=== PATIENT | male | born 1940 | race Caucasian/White ===

== ENCOUNTER 2019-12-20 06:03 | Inpatient (IN) | payer OTHER ==
[~2019-12-20] VITALS: Ht 198.1 cm; Wt 136.6 kg
[~2019-12-20 06:03] MED LIST: ASPI-543 PO; CANA100T PO; LOSA-69 PO; MECL25TA18 PO
[2019-12-20] MEDS ORDERED: PREGABALIN CAPSULE 75 MG CAP PO ONE ×2 (06:30→07:15)
[2019-12-20] MEDS ORDERED: CELECOXIB 100 MG CAP PO ONE (06:30)
[2019-12-20] MEDS ORDERED: ACETAMINOPHEN IV 1000 MG/100ML (10MG/ML) IV ONE (06:30)
[2019-12-20] MEDS ORDERED: ACETAMINOPHEN IV 100 ML IV ONE (06:41)
[2019-12-20] MEDS ORDERED: TRANEXAMIC ACID 20 ML ONE (07:01)
[2019-12-20] MEDS ORDERED: VANCOMYCIN HCL 1000 MG VL ONE (07:03)
[2019-12-20] MEDS ORDERED: KETOROLAC TROMETH 30 MG/ML 1ML VIAL ONE ×2 (07:03→09:23)
[2019-12-20] MEDS ORDERED: MORPHINE SULF(PF) 0.5MG/ML 10ML VIAL ONE (07:06)
[2019-12-20] MEDS ORDERED: ceFAZolin 1GM/50ML 100 ML IV ONE ×3 (07:07→23:03)
[2019-12-20] MEDS ORDERED: BUPIVACAINE 0.25% INJ 50ML VIAL ONE (07:09)
[2019-12-20 07:32] LABS: Hemoglobin 14.1 g/dL (13.5-17.5); Mean Corpuscular Volume 103.5 fL (80.0-100.0)
[2019-12-20 07:34] LABS: Hematocrit 37.6 % (41.0-53.0); Mean Corpuscular Hemoglobin 38.7 pg (28.0-32.0); Mean Corpuscular Hgb Conc. 37.4 g/dL (32.0-36.0); Platelet Count (auto) 142 10^3/uL (140-450); Red Blood Cells 3.63 10^6/uL (4.5-5.90); Red Cell Distribution Width 14.2 % (11.8-14.3); White Blood Cell 12.1 10^3/uL (4.4-10.8)
[2019-12-20] MEDS ORDERED: LIDOCAINE 1% HCL (LOCAL ANESTH.) INJ 20ML MDV ONE (07:40)
[2019-12-20] MEDS ORDERED: SUCCINYLCHOLINE CHLORIDE 20 MG/ML 10ML VIAL IV ONE (07:40)
[2019-12-20 07:52] LABS: Band Neutrophils % (manual) 0; Basophils % (manual) 0 (0.0-2.0); Blast Cells 0; Metamyelocytes % 0; Myelocytes % 0; Promyelocytes % 0; Reactive Lymphocytes 0
[2019-12-20] MEDS ORDERED: MIDAZOLAM HCL 1MG/1ML-2 ML VIAL ONE (07:55)
[2019-12-20] MEDS ORDERED: METOCLOPRAMIDE HCL 5MG/ml INJ 2ml VIAL ONE (07:56)
[2019-12-20] MEDS ORDERED: ETOMIDATE (2MG/ML) 20ML VIAL IV ONE (07:57)
[2019-12-20] MEDS ORDERED: ROCURONIUM 10MG/ML 10ML VIAL IV ONE (07:58)
[2019-12-20] MEDS ORDERED: fentaNYL CITRATE 100 MCG/2 ML VL ONE (08:13)
[2019-12-20] MEDS ORDERED: ONDANSETRON HCL 4 MG/2 ML VIAL IV PRN ×2 (08:15→10:00)
[2019-12-20] MEDS ORDERED: ACCU-CHEK COMFORT CURVE STRIP VI ONE (08:15)
[2019-12-20] MEDS ORDERED: NALOXONE HCL 0.4 MG/ML VIAL IV PRN (08:15)
[2019-12-20] MEDS ORDERED: HYDROmorphone HCL 2 MG/ML VL IV PRN ×3 (08:15→10:00)
[2019-12-20 08:41] LABS: Eosinophils % (manual) 5 (0-7); Lymphocytes % (manual) 72 (10.0-50.0); Monocytes % (manual) 4 (0-12)
[2019-12-20] MEDS ORDERED: SODIUM CHLORIDE LOCK 10 ML ONE (08:42)
[2019-12-20] MEDS ORDERED: ePHEDrine SULFATE 50 MG/ML AMP ONE (08:42)
[2019-12-20] MEDS ORDERED: GLYCOPYRROLATE 0.2 MG/ML 1ML VIAL ONE (09:49)
[2019-12-20] MEDS ORDERED: NEOSTIGMINE 1 MG/ML INJ (10mg/10ML VIAL) ONE (09:49)
[2019-12-20] MEDS: DOCUSATE SOD 100 MG CAP PO SCH ×2 (10:00→21:35)
[2019-12-20] MEDS: ENOXAPARIN SOD 40 MG/0.4 ML SYRINGE SC SCH (10:00)
[2019-12-20] MEDS ORDERED: OXYCODONE W/ ACETAMINOPHEN 5/325MG TABLET PO PRN (10:00)
[2019-12-20] MEDS ORDERED: ACETAMINOPHEN 325 MG TAB PO PRN (10:00)
[2019-12-20] MEDS ORDERED: CANAGLIFLOZIN 100 MG PO SCH (10:00)
[2019-12-20] MEDS ORDERED: traMADol HCL 50 MG TAB PO PRN (10:00)
[2019-12-20] MEDS ORDERED: MORPHINE SULF INJ 2 MG/ML SYRINGE 1ML IV PRN (10:00)
[2019-12-20] MEDS ORDERED: NITROGLYCERIN 0.4 MG SL TAB SL PRN (10:00)
[2019-12-20] MEDS: LOSARTAN POTASSIUM 50 MG TAB PO SCH (10:00)
[2019-12-20] MEDS ORDERED: DEXTROSE (50%) 50ML SYRG IV PRN (10:00)
[2019-12-20] MEDS: LACTATED RINGER'S 1,000 ML IV SCH ×2 (10:00→20:00)
[2019-12-20] MEDS ORDERED: HYDROmorphone HCL 2 MG/ML VL IV ONE (10:45)
[2019-12-20] MEDS ORDERED: ONDANSETRON HCL 4 MG/2 ML VIAL IV ONE (10:45)
[2019-12-20] MEDS ORDERED: ACCU-CHEK COMFORT CURVE STRIP VI SCH (11:30)
[2019-12-20] MEDS: InsuLIN REG 1unit/0.01ml Soln (100units/ml) SC SCH ×3 (11:30→21:37)
[2019-12-20] MEDS: ACCU-CHEK COMFORT CURVE STRIP VI SCH ×3 (11:30→21:37)
[2019-12-20] MEDS: ceFAZolin 1GM 2 GM in D5W 5% 100 ML IV SCH ×2 (14:00→22:00)
[2019-12-20] MEDS: SODIUM CHLOR 0.9% PF (SALINE LOCK) 10ML VIAL/SYR IV SCH ×2 (14:00→21:35)
[2019-12-20] MEDS: MECLIZINE HCL 25 MG TAB PO SCH ×2 (14:00→21:35)
[2019-12-20 17:00] VITALS: BP 124/69
--- NOTE | 2019-12-20 19:20 | NUR ---
OPENING SHIFT NOTE Assumed care of patient, patient is alert and oriented currently on RA with no S/S of distress of SOB noted at this time. Patient denies pain. Dressing to the right knee is clean dry and intact. Currently running LR @100mls/hr. Patient is ambulatory with assist. Urinal bedside. POC discussed with patient in detail patient verbalized understanding. Patient is encouraged to call for assistance as needed. Bed in lowest position, locked, side rails up x2, call light within reach. Will continue to monitor PRN.
[2019-12-20 22:00] VITALS: BP 119/61
[2019-12-21 05:44] LABS: Hematocrit 38.2 % (41.0-53.0); Hemoglobin 12.8 g/dL (13.5-17.5)
[2019-12-21 05:45] VITALS: BP 128/56
[2019-12-21] MEDS: MECLIZINE HCL 25 MG TAB PO SCH ×3 (06:00→21:21)
[2019-12-21] MEDS: LACTATED RINGER'S 1,000 ML IV SCH ×2 (06:00→16:00)
[2019-12-21] MEDS: ceFAZolin 1GM 2 GM in D5W 5% 100 ML IV SCH (06:00)
--- NOTE | 2019-12-21 06:00 | NUR ---
IV FLUIDS Patient is tolerating clear liquid, per MD order to discontinue once patient tolerates clear liquids, LR @100mls/hr has been stopped. IV was flushed and is saline locked.
[2019-12-21 06:05] LABS: Albumin 3.3 g/dL (3.4-5.0); Calcium 8.3 mg/dL (8.5-10.1); Potassium 4.1 mmol/L (3.5-5.1)
[2019-12-21] MEDS: SODIUM CHLOR 0.9% PF (SALINE LOCK) 10ML VIAL/SYR IV SCH ×3 (06:05→21:20)
[2019-12-21 06:09] LABS: BUN/Creatinine Ratio 13.6; Bilirubin, Total 1.2 mg/dL (0.2-1.0)
[2019-12-21] MEDS: ACCU-CHEK COMFORT CURVE STRIP VI SCH ×4 (06:28→21:21)
[2019-12-21] MEDS: InsuLIN REG 1unit/0.01ml Soln (100units/ml) SC SCH ×5 (06:29→21:21)
--- NOTE | 2019-12-21 07:29 | NUR ---
CARE ENDORSED TO DAY SHIFT RN
[2019-12-21 09:00] VITALS: BP_SYST 102; BP_SYST 124; BP_DIAS 42; BP_DIAS 53
[2019-12-21] MEDS: LOSARTAN POTASSIUM 50 MG TAB PO SCH (10:28)
[2019-12-21] MEDS: ENOXAPARIN SOD 40 MG/0.4 ML SYRINGE SC SCH (10:29)
[2019-12-21] MEDS: DOCUSATE SOD 100 MG CAP PO SCH ×2 (10:29→21:21)
--- NOTE | 2019-12-21 11:32 | NUR ---
pt refused insulin, per pt his will bring his invokana for his blood sugar.
[2019-12-21] MEDS ORDERED: SODIUM CHLORIDE 0.9% 1,000 ML IV ONE (11:45)
--- NOTE | 2019-12-21 14:56 | NUR ---
D/C planning Per social service consult for home health safety evaluation. F[facility]ed clinical information to [facility]. Per Adrianne [facility]clain home health patient has been accepted and service to start within 24-48hrs upon d.c day.
--- NOTE | 2019-12-21 15:11 | NUR ---
assessment Patient is a 79 year old male who is alert and oriented. Patients cognitive abilities are intact. Prior to admission patient lived home with family and functioned independently. Patient informed me he is able to care for his own ADLs. Per patient he will return home to his prior living arrangements post discharge and family will transport him home. Patient has been admitted for knee replacement. Patients PCP is Dr Luna. Patient has a cane, fww, and crutches for home use. Patient has been admitted for knee replacement. Patient will need home health for PT on discharge. I informed patient he has a right to speak to a social worker psychiatric regarding all care. I informed patient he has a right to participate in any and all discharge planning. Patient has a POA and advanced directive. Patient verbalized understanding and agreed to discharge plan. Addendum: 12/21/19 at 1519 by Liliane BARRERA Amended: Links added.
[2019-12-21] MEDS: OXYCODONE W/ ACETAMINOPHEN 5/325MG TABLET PO PRN ×2 (16:36→21:29)
[2019-12-21 17:00] VITALS: BP 139/58
--- NOTE | 2019-12-21 19:20 | NUR ---
OPENING SHIFT NOTE Assumed care of patient, patient is alert and oriented currently on RA with no S/S of distress of SOB noted at this time. Patient denies pain. Dressing to the right knee is clean dry and intact. Patient is ambulatory with assist. Urinal bedside, SCD machine applied to both legs, IS bedside. POC discussed with patient in detail patient verbalized understanding. Patient is encouraged to call for assistance as needed. Bed in lowest position, locked, side rails up x2, call light within reach. Will continue to monitor PRN.
[2019-12-21 21:50] VITALS: BP 122/49
[2019-12-22] MEDS: LACTATED RINGER'S 1,000 ML IV SCH (02:00)
[2019-12-22] MEDS: OXYCODONE W/ ACETAMINOPHEN 5/325MG TABLET PO PRN (04:11)
--- NOTE | 2019-12-22 04:45 | NUR ---
IV removal IV DC'd with clean sterile technique, catheter fully intact. Pressure dressing applied to site. Patient tolerated well.
--- NOTE | 2019-12-22 05:00 | NUR ---
IV insertion IV access obtained, via clean sterile technique by inserting 20 gauge catheter to the right forearm after 1 attempt. IV secured properly. No trauma to site. Patient tolerated well.
[2019-12-22 05:26] VITALS: BP 136/89
[2019-12-22] MEDS: SODIUM CHLOR 0.9% PF (SALINE LOCK) 10ML VIAL/SYR IV SCH (05:55)
[2019-12-22] MEDS: MECLIZINE HCL 25 MG TAB PO SCH (06:43)
[2019-12-22] MEDS: ACCU-CHEK COMFORT CURVE STRIP VI SCH (06:43)
[2019-12-22] MEDS: InsuLIN REG 1unit/0.01ml Soln (100units/ml) SC SCH (06:43)
--- NOTE | 2019-12-22 07:30 | NUR ---
PATIENT REMOVED TELEBOX AND REFUSED TO BE PUT BACK ON DUE TO PENDING DISCHARGE THIS MORNING. PATIENT WILL BE CONTINUED TO BE MONITORED.
--- NOTE | 2019-12-22 07:30 | NUR ---
Opening Shift Note Assumed care of patient, awake and alert. No S/S of distress/SOB or pain. Instructed on POC and to call for assist PRN, will continue to monitor for changes Q1hr and PRN. Bed is locked and in lowest position. Call light within reach.
--- NOTE | 2019-12-22 07:34 | NUR ---
CARE ENDORSED TO DAY SHIFT RN
[2019-12-22 07:47] LABS: Hematocrit 34.1 % (41.0-53.0); Hemoglobin 12.2 g/dL (13.5-17.5)
[2019-12-22 08:05] LABS: BUN/Creatinine Ratio 16.9; Calcium 8.1 mg/dL (8.5-10.1); Potassium 4.1 mmol/L (3.5-5.1)
[2019-12-22 09:00] VITALS: BP 136/56
--- NOTE | 2019-12-22 09:28 | NUR ---
D/C Planning Regarding social service consult home health for physical therapy. Faxed updated order to [facility] and [facility]. Per Adrianne with [facility] updated order has been received and they will see patient within 24-48hrs upon d/c day.
[2019-12-22] MEDS: DOCUSATE SOD 100 MG CAP PO SCH (10:00)
[2019-12-22] MEDS: ENOXAPARIN SOD 40 MG/0.4 ML SYRINGE SC SCH (10:00)
[2019-12-22] MEDS: LOSARTAN POTASSIUM 50 MG TAB PO SCH (10:00)
--- NOTE | 2019-12-22 10:00 | NUR ---
PATIENT 1000 AM MEDICATIONS NOT ADMINISTERED DUE TO PATIENT BEING DISCHARGED. PATIENT DECLINED MEDICATIONS AND WILL RESUME HOME MEDICATIONS WHEN HOME. WILL CONTINUE TO MONITOR PATIENT.
[2019-12-22 10:25] VITALS: BP 137/64
--- NOTE | 2019-12-22 10:50 | NUR ---
DISCHARGED PATIENT GIVEN DISCHARGE PAPERWORK, ALL QUESTIONS AND CONCERNS ANSWERED. PATIENT GIVEN PRESCRIPTIONS. PATIENT TELEMONITOR REMOVED AND SENT TO ICU HEART LAB. PATIENT CMP MACHINE AT BEDSIDE AND WILL BE TRANSPORTED WITH PATIENT HOME. PATIENT AWAITING HAT BLOCK BENCH HAND FROM . IV removal IV DC'd with clean sterile technique, catheter fully intact. Pressure dressing applied to site. Patient tolerated well.
== END 2019-12-22 12:18 | disposition home health service (06) | DRG 470 ==
LOC: OVERFLOW 06:03 → EDSTATUS 07:00 → TELE-CENTR 16:48
PROVIDERS: ADMIT Orthopaedic Surgery Adult Reconstructive Orthopaedic Surgery; ATTEND Hospitalist
PROC: 8E0YXBZ Computer Assisted Procedure of Lower Extremity (ICD-10-PCS; 2019-12-20)
PROC: 0SRC069 Replacement of Right Knee Joint with Oxidized Zirconium on Polyethylene Synthetic Substitute, Cemented, Open Approach (ICD-10-PCS; principal; 2019-12-20 07:50)
DX: M17.11 Unilateral primary osteoarthritis, right knee (principal); D62 Acute posthemorrhagic anemia; I10 Essential (primary) hypertension; E11.9 Type 2 diabetes mellitus without complications; Z96.651 Presence of right artificial knee joint; Z20.828 Contact with and (suspected) exposure to other viral communicable diseases
CPT/HCPCS: 36415; 73562; 80048; 80053; 82962; 85007; 85014; 85018; 85027; 86850; 86900; 86901; 97110; 97116; 97163; 97530; C1713; G0378; J0131; J0330; J0690; J1815; J1885; J2001; J2250; J2405; J3490; J7060

== ENCOUNTER 2023-03-26 20:28 | Emergency (ER) | payer OTHER ==
[~2023-03-26] VITALS: Ht 198.1 cm; Wt 122.0 kg
[~2023-03-26 20:28] MED LIST changes: -ASPI-543 PO; -LOSA-69 PO; +LOSA50TA46 PO; +MECL1TAB32 PO; -MECL25TA18 PO
[2023-03-26 21:10] VITALS: PULSE 91; RESP 17; O2SAT 96
[2023-03-26 21:30] LABS: Chloride 109 mmol/L (98-107); Potassium 4.5 mmol/L (3.5-5.1); Sodium 138 mmol/L (136-145)
[2023-03-26 21:31] LABS: Anion Gap 11 (5-15); Calcium 8.9 mg/dL (8.5-10.1); Carbon Dioxide 18 mmol/L (20-30)
[2023-03-26 21:36] LABS: BUN/Creatinine Ratio 9.1 (10.0-20.0); Blood Urea Nitrogen 12 mg/dL (9-23); Glucose 119 mg/dL (74-106)
[2023-03-26 22:00] LABS: Hematocrit 41.6 % (41.0-53.0); Hemoglobin 13.6 g/dL (13.5-17.5); Mean Corpuscular Hemoglobin 31.6 pg (28.0-32.0); Mean Corpuscular Hgb Conc. 32.8 g/dL (32.0-36.0); Mean Corpuscular Volume 96.4 fL (80.0-100.0); Red Blood Cells 4.32 10^6/uL (4.5-5.90); Red Cell Distribution Width 14.7 % (11.8-14.3); White Blood Cell 18.5 10^3/uL (4.4-10.8)
[2023-03-26 22:04] LABS: Band Neutrophils % (manual) 0; Basophils % (manual) 0 (0.0-2.0); Blast Cells 0; Eosinophils % (manual) 0 (0-7); Metamyelocytes % 0; Myelocytes % 0; Promyelocytes % 0; Reactive Lymphocytes 0
[2023-03-26] MEDS ORDERED: SODIUM CHLORIDE 0.9% 1,000 ML IV ONE (22:15)
[2023-03-26 22:22] LABS: Lymphocytes % (manual) 61 (10.0-50.0); Monocytes % (manual) 9 (0-12)
[2023-03-26 22:23] LABS: Anisocytosis Slight; Macrocytosis Moderate; Platelet Estimate Decreased
[2023-03-26 22:39] LABS: Urine Epithelial Cast None Seen /hpf (<5)
[2023-03-26 23:14] LABS: Urine Bacteria NONE SEEN /hpf (None Seen); Urine Blood 2+ /uL (Negative); Urine Clarity Clear (Clear); Urine Color Yellow (Yellow); Urine Mucus FEW (None Seen); Urine Protein, UAD 1+ (Negative); Urine Specific Gravity 1.019 (1.001-1.035); Urine Urobilinogen Normal (Negative); Urine WBC 1 /hpf (0 - 3); Urine pH 5.5 (5.0-8.0)
[2023-03-27 01:00] VITALS: BP 172/75; PULSE 89; RESP 22; TEMP 99; O2SAT 95
[2023-03-27] MEDS ORDERED: IOHEXOL 350 MG/ML 100ML IJ ONE (02:34)
== END 2023-03-27 02:16 | disposition home or self-care (01) ==
LOC: EDBD 20:28 → ER 20:28
DX: R53.1 Weakness (principal); G89.29 Other chronic pain; M54.9 Dorsalgia, unspecified; Z79.899 Other long term (current) drug therapy
CPT/HCPCS: 36415; 71045; 74177; 80048; 81001; 83880; 84484; 85007; 85027; 93005; 96360; 99285; J7030; Q9967

== ENCOUNTER 2023-06-23 17:21 | Inpatient (IN) | payer MEDICARE, OTHER ==
[~2023-06-23] VITALS: Ht 180.3 cm; Wt 105.4 kg
[~2023-06-23 17:21] MED LIST changes: +LOSA-534 PO; -LOSA50TA46 PO; +MECL-90 PO; -MECL1TAB32 PO
[2023-06-23 17:50] VITALS: PULSE 106; RESP 16; O2SAT 98
[2023-06-23] MEDS: LIDOCAINE 2% JELLY 11ml (GLYDO) UR ONE (18:39)
[2023-06-23 19:23] LABS: Urine Bacteria None Seen /hpf (None Seen)
[2023-06-23 19:28] LABS: Hematocrit 35.9 % (41.0-53.0); Mean Corpuscular Volume 105.3 fL (80.0-100.0); Red Blood Cells 3.41 10^6/uL (4.5-5.90); Red Cell Distribution Width 14.7 % (11.8-14.3); White Blood Cell 20.8 10^3/uL (4.4-10.8)
[2023-06-23 19:30] VITALS: PULSE 101; RESP 15; O2SAT 98
[2023-06-23 19:33] LABS: Basophils % (manual) 0 (0.0-2.0); Blast Cells 0; Eosinophils % (manual) 0 (0-7); Metamyelocytes % 0; Myelocytes % 0; Promyelocytes % 0; Reactive Lymphocytes 0
[2023-06-23 19:36] LABS: Urine Blood 3+ /uL (Negative); Urine Clarity Clear (Clear); Urine Color Yellow (Yellow); Urine Mucus FEW (None Seen); Urine Protein, UAD 1+ (Negative); Urine Specific Gravity 1.019 (1.001-1.035); Urine Urobilinogen Normal (Negative); Urine WBC 4 /hpf (0 - 3)
[2023-06-23 19:37] LABS: Chloride 106 mmol/L (98-107); Potassium 4.7 mmol/L (3.5-5.1); Sodium 136 mmol/L (136-145)
[2023-06-23 19:39] LABS: Anion Gap 18 (5-15); Calcium 9.4 mg/dL (8.5-10.1); Carbon Dioxide 12 mmol/L (20-30)
[2023-06-23 19:44] LABS: BUN/Creatinine Ratio 14.1 (10.0-20.0); Blood Urea Nitrogen 20 mg/dL (9-23); Glucose 168 mg/dL (74-106)
[2023-06-23 21:25] LABS: Band Neutrophils % (manual) 4; Lymphocytes % (manual) 54 (10.0-50.0); Monocytes % (manual) 6 (0-12); Platelet Estimate Decreased
[2023-06-23 21:26] LABS: Stomatocytes Few
[2023-06-23] MEDS ORDERED: MORPHINE SULFATE INJ 2 MG/ml SYRG IV PRN (23:00)
[2023-06-23] MEDS ORDERED: NITROGLYCERIN 0.4 MG SL TAB SL PRN (23:00)
[2023-06-23] MEDS ORDERED: ACETAMINOPHEN 325 MG TAB PO PRN (23:00)
[2023-06-23] MEDS ORDERED: DEXTROSE (50%) 50ML SYRG IV PRN (23:00)
[2023-06-23 23:29] LABS: Lactic Acid w/Reflex 4.6 mmol/L (0.4-2.0)
[2023-06-23] MEDS: SODIUM CHLORIDE 0.9% 1,000 ML IV ONE (23:48)
[2023-06-24] MEDS ORDERED: VANCOMYCIN PER PHARMACY 0 MG IV SCH
[2023-06-24] MEDS: SODIUM CHLORIDE 0.9% 1,000 ML IV ONE (00:19)
[2023-06-24] MEDS: VANCOMYCIN 1GM/200ML 200 ML IV ONE (00:21)
[2023-06-24 01:16] LABS: INR 1.31 (0.9-1.15); Partial Thromboplastin Time 32.8 SEC (24.5-34.5); Prothrombin Time 13.5 sec (9.3-11.8)
[2023-06-24 01:28] LABS: Hemoglobin 13.1 g/dL (13.5-17.5); Mean Corpuscular Hemoglobin 38.7 pg (28.0-32.0); Mean Corpuscular Hgb Conc. 35.5 g/dL (32.0-36.0); Mean Corpuscular Volume 109.2 fL (80.0-100.0); Red Blood Cells 3.39 10^6/uL (4.5-5.90); Red Cell Distribution Width 15.1 % (11.8-14.3); White Blood Cell 27.1 10^3/uL (4.4-10.8)
[2023-06-24 01:29] LABS: Basophils % (manual) 0 (0.0-2.0); Blast Cells 0; Eosinophils % (manual) 0 (0-7); Myelocytes % 0; Promyelocytes % 0
[2023-06-24] MEDS: HEPARIN SODIUM (PORCINE) 5000 UNITS/ML 1ML VIAL IV ONE (01:47)
[2023-06-24] MEDS: HEPARIN DRIP/D5W 100UNITS/ML 250 ML IV SCH (01:57)
[2023-06-24 02:00] LABS: Band Neutrophils % (manual) 1; Lymphocytes % (manual) 58 (10.0-50.0); Macrocytosis Moderate; Metamyelocytes % 1; Monocytes % (manual) 4 (0-12); Platelet Estimate Decreased; Reactive Lymphocytes 1
[2023-06-24 02:01] LABS: Stomatocytes Few
[2023-06-24 04:33] LABS: Hematocrit 38.3 % (41.0-53.0); Hemoglobin 13.2 g/dL (13.5-17.5); Mean Corpuscular Hemoglobin 36.3 pg (28.0-32.0); Mean Corpuscular Hgb Conc. 34.6 g/dL (32.0-36.0); Red Blood Cells 3.65 10^6/uL (4.5-5.90); Red Cell Distribution Width 14.7 % (11.8-14.3); White Blood Cell 25.6 10^3/uL (4.4-10.8)
[2023-06-24 04:53] LABS: Chloride 109 mmol/L (98-107); Potassium 4.4 mmol/L (3.5-5.1); Sodium 135 mmol/L (136-145)
[2023-06-24 04:54] LABS: Anion Gap 10 (5-15); Calcium 8.9 mg/dL (8.7-10.4); Carbon Dioxide 16 mmol/L (20-30)
[2023-06-24 04:56] LABS: Basophils % (manual) 0 (0.0-2.0); Blast Cells 0; Eosinophils % (manual) 0 (0-7); Metamyelocytes % 0; Myelocytes % 0; Promyelocytes % 0
[2023-06-24 04:59] LABS: BUN/Creatinine Ratio 16.4 (10.0-20.0); Blood Urea Nitrogen 22 mg/dL (9-23); Glucose 136 mg/dL (74-106)
[2023-06-24 05:04] LABS: Lactic Acid w/Reflex 3.4 mmol/L (0.4-2.0)
[2023-06-24] MEDS: SODIUM CHLORIDE 0.9% 500 ML IV ONE ×2 (06:12→18:43)
[2023-06-24] MEDS: PIPERACILLIN-TAZOB 3.375GM 100 ML IV SCH (06:14)
[2023-06-24 06:19] LABS: Band Neutrophils % (manual) 5; Lymphocytes % (manual) 58 (10.0-50.0); Monocytes % (manual) 5 (0-12); Reactive Lymphocytes 3
[2023-06-24 06:20] LABS: Macrocytosis Slight; Platelet Estimate Decreased
[2023-06-24] MEDS: InsuLIN REG 1unit/0.01ml Soln (100units/ml) SC SCH (06:55)
[2023-06-24] MEDS: ACCU-CHEK COMFORT CURVE STRIP VI SCH (06:55)
[2023-06-24 07:39] VITALS: PULSE 81; RESP 16; O2SAT 97
[2023-06-24 09:24] LABS: INR 1.42 (0.9-1.15); Prothrombin Time 14.6 sec (9.3-11.8)
[2023-06-24 09:29] LABS: Lactic Acid w/Reflex 3.6 mmol/L (0.4-2.0)
[2023-06-24 09:35] LABS: Partial Thromboplastin Time 82.4 SEC (24.5-34.5)
[2023-06-24 17:36] LABS: INR 1.36 (0.9-1.15); Partial Thromboplastin Time 50.2 SEC (24.5-34.5)
[2023-06-24] MEDS: VANCOMYCIN 1GM/200ML 200 ML IV SCH (18:42)
[2023-06-24] MEDS: SODIUM CHLORIDE 0.9% 1,000 ML IV SCH (18:43)
[2023-06-24 19:35] VITALS: PULSE 69; RESP 17; O2SAT 99
[2023-06-24] MEDS: traMADol HCL 50 MG TAB PO PRN (20:30)
[2023-06-24] MEDS: MELATONIN 5 MG TAB PO PRN (22:29)
[2023-06-25 01:09] LABS: INR 1.29 (0.9-1.15); Partial Thromboplastin Time 46.3 SEC (24.5-34.5); Prothrombin Time 13.3 sec (9.3-11.8)
[2023-06-25 06:07] LABS: Hematocrit 34.6 % (41.0-53.0); Hemoglobin 12.5 g/dL (13.5-17.5); Mean Corpuscular Hemoglobin 40.3 pg (28.0-32.0); Mean Corpuscular Hgb Conc. 36.2 g/dL (32.0-36.0); Mean Corpuscular Volume 111.4 fL (80.0-100.0); Red Cell Distribution Width 14.6 % (11.8-14.3); White Blood Cell 17.1 10^3/uL (4.4-10.8)
[2023-06-25 06:10] LABS: Basophils % (manual) 0 (0.0-2.0); Blast Cells 0; Eosinophils % (manual) 0 (0-7); Metamyelocytes % 0; Myelocytes % 0; Promyelocytes % 0; Reactive Lymphocytes 0
[2023-06-25 06:15] LABS: INR 1.27 (0.9-1.15); Partial Thromboplastin Time 52.7 SEC (24.5-34.5); Prothrombin Time 13.1 sec (9.3-11.8)
[2023-06-25 06:51] LABS: Chloride 111 mmol/L (98-107); Potassium 4.4 mmol/L (3.5-5.1); Sodium 137 mmol/L (136-145)
[2023-06-25 06:52] LABS: Anion Gap 7 (5-15); Calcium 8.1 mg/dL (8.5-10.1); Carbon Dioxide 19 mmol/L (20-30)
[2023-06-25 06:57] LABS: Blood Urea Nitrogen 29 mg/dL (9-23); Glucose 117 mg/dL (74-106)
[2023-06-25 07:00] LABS: BUN/Creatinine Ratio 25.2 (10.0-20.0)
[2023-06-25 07:37] LABS: Lactic Acid w/Reflex 2.8 mmol/L (0.4-2.0)
[2023-06-25 08:33] LABS: Band Neutrophils % (manual) 10; Lymphocytes % (manual) 52 (10.0-50.0); Monocytes % (manual) 7 (0-12)
[2023-06-25 08:34] LABS: Macrocytosis Marked; Platelet Estimate Decreased
[2023-06-25] MEDS: cefTRIAXone 2GM/50ML D5W 50 ML IV SCH (10:00)
[2023-06-25 11:31] LABS: INR 1.22 (0.9-1.15); Partial Thromboplastin Time 52.3 SEC (24.5-34.5); Prothrombin Time 12.6 sec (9.3-11.8)
[2023-06-25] MEDS: SODIUM CHLORIDE 0.9% 1,000 ML IV SCH (13:45)
[2023-06-25] MEDS ORDERED: NAP500T PO (15:10)
[2023-06-25] MEDS ORDERED: LOSA-533 PO (15:10)
[2023-06-25] MEDS ORDERED: PANT40TA2 PO (15:10)
[2023-06-25] MEDS ORDERED: LATA0.0020 EACHEYE (15:10)
[2023-06-25] MEDS ORDERED: DAPA1TAB4 PO (15:10)
[2023-06-25 18:33] VITALS: PULSE 78; RESP 18; O2SAT 96
[2023-06-25 18:33] LABS: INR 1.19 (0.9-1.15); Partial Thromboplastin Time 52.1 SEC (24.5-34.5); Prothrombin Time 12.4 sec (9.3-11.8)
[2023-06-25 19:30] VITALS: PULSE 71; RESP 15; O2SAT 96
[2023-06-26 01:53] LABS: INR 1.18 (0.9-1.15); Partial Thromboplastin Time 54.3 SEC (24.5-34.5); Prothrombin Time 12.3 sec (9.3-11.8)
[2023-06-26 05:19] LABS: Red Cell Distribution Width 14.7 % (11.8-14.3)
[2023-06-26 05:20] LABS: Basophils # (auto) 0.1 10 ^3/uL (0-0.2); Basophils % (auto) 0.6 % (0.0-2.0); Eosinophils # (auto) 0.3 10 ^3/uL (0-0.8); Eosinophils % (auto) 2.1 % (0.0-7.0); Hematocrit 36.5 % (41.0-53.0); Hemoglobin 12.9 g/dL (13.5-17.5); Mean Corpuscular Hemoglobin 37.3 pg (28.0-32.0); Mean Corpuscular Hgb Conc. 35.4 g/dL (32.0-36.0); Mean Corpuscular Volume 105.1 fL (80.0-100.0); Monocytes % (auto) 6.3 % (0.0-12.0); Neutrophils # (auto) 3.6 10 ^3/uL (1.6-8.6); Neutrophils % (auto) 22.7 % (37.0-80.0); Red Blood Cells 3.47 10^6/uL (4.5-5.90)
[2023-06-26 05:29] LABS: Chloride 113 mmol/L (98-107); Potassium 4.2 mmol/L (3.5-5.1); Sodium 138 mmol/L (136-145)
[2023-06-26 05:35] LABS: Calcium 8.1 mg/dL (8.5-10.1)
[2023-06-26 05:40] LABS: BUN/Creatinine Ratio 17.9 (10.0-20.0); Blood Urea Nitrogen 17 mg/dL (9-23); Glucose 121 mg/dL (74-106)
[2023-06-26 05:45] LABS: INR 1.19 (0.9-1.15); Partial Thromboplastin Time 48.7 SEC (24.5-34.5); Prothrombin Time 12.4 sec (9.3-11.8)
[2023-06-26 06:52] LABS: Anion Gap 9 (5-15); Carbon Dioxide 16 mmol/L (20-30)
[2023-06-26] MEDS: hydrALAZINE HCL 20 MG/ML VL IV PRN (06:55)
[2023-06-26 07:45] LABS: Lymphocytes % (auto) 68.3 % (10.0-50.0)
[2023-06-26 11:12] LABS: INR 1.13 (0.9-1.15); Partial Thromboplastin Time 50.9 SEC (24.5-34.5); Prothrombin Time 11.9 sec (9.3-11.8)
[2023-06-26 12:04] VITALS: PULSE 76; RESP 20; O2SAT 96
[2023-06-26] MEDS: OLANZapine 5 MG TAB PO SCH (13:06)
[2023-06-26] MEDS: SODIUM CHLORIDE 0.9% 1,000 ML IV SCH (17:15)
[2023-06-26] MEDS ORDERED: VANCOMYCIN 1GM/200ML 200 ML IV SCH (18:00)
[2023-06-26 19:30] VITALS: PULSE 100; RESP 21; O2SAT 96
[2023-06-26 21:59] VITALS: BP 160/37; PULSE 110; RESP 16; TEMP 98.2; O2SAT 95
[2023-06-26 22:00] VITALS: BP 183/74; PULSE 94; RESP 18; TEMP 98.1; O2SAT 95
[2023-06-26] MEDS: ATORVASTATIN 20 MG TAB PO SCH (22:34)
[2023-06-26] MEDS: HALOPERIDOL LACTATE 5 MG/ML INJ VIAL IM PRN (23:46)
[2023-06-27] VITALS (10 sets, daily range): BP systolic 118–177; BP diastolic 56–74; PULSE 53–114; RESP 18–22; TEMP 97.4–100.6; O2SAT 93–95
[2023-06-27 07:15] LABS: Chloride 114 mmol/L (98-107); Potassium 3.9 mmol/L (3.5-5.1); Sodium 142 mmol/L (136-145)
[2023-06-27 07:16] LABS: Anion Gap 9 (5-15); Carbon Dioxide 19 mmol/L (20-30)
[2023-06-27 07:17] LABS: Red Cell Distribution Width 14.4 % (11.8-14.3)
[2023-06-27 07:19] LABS: Hematocrit 36.1 % (41.0-53.0); Hemoglobin 12.9 g/dL (13.5-17.5); Mean Corpuscular Hemoglobin 37.3 pg (28.0-32.0); Mean Corpuscular Hgb Conc. 35.8 g/dL (32.0-36.0); Mean Corpuscular Volume 104.3 fL (80.0-100.0); Red Blood Cells 3.46 10^6/uL (4.5-5.90); White Blood Cell 16.3 10^3/uL (4.4-10.8)
[2023-06-27 07:21] LABS: BUN/Creatinine Ratio 17.9 (10.0-20.0); Blood Urea Nitrogen 17 mg/dL (9-23); Glucose 127 mg/dL (74-106)
[2023-06-27 07:27] LABS: Basophils % (manual) 0 (0.0-2.0); Blast Cells 0; Metamyelocytes % 0; Myelocytes % 0; Promyelocytes % 0
[2023-06-27 08:46] LABS: Band Neutrophils % (manual) 1; Eosinophils % (manual) 2 (0-7); Lymphocytes % (manual) 45 (10.0-50.0); Monocytes % (manual) 6 (0-12); Reactive Lymphocytes 18; Smudge Cells 1 /100 WBC
[2023-06-27 08:47] LABS: Macrocytosis Slight; Platelet Estimate Decreased
[2023-06-27] MEDS: CLOPIDOGREL BISULFATE 75 MG TAB PO SCH (09:28)
[2023-06-27] MEDS: ASPirin-EC 81 mg tab PO SCH (09:28)
[2023-06-27] MEDS: ENOXAPARIN SOD 40 MG/0.4 ML SYRINGE SC SCH (09:29)
[2023-06-27] MEDS: IOHEXOL 350 MG/ML 100ML IJ ONE (14:45)
[2023-06-27] MEDS: LORazepam 2MG/ML-1ML VIAL IV PRN (16:39)
[2023-06-27] MEDS: OLANZapine 5 MG TAB PO SCH (21:48)
[2023-06-27] MEDS: LOSARTAN POTASSIUM 25 MG TAB PO ONE (22:48)
[2023-06-28] VITALS (7 sets, daily range): BP systolic 104–162; BP diastolic 54–84; PULSE 69–114; RESP 20–24; TEMP 98.2–101.3; O2SAT 95–97
[2023-06-28 07:47] LABS: Hemoglobin 13.3 g/dL (13.5-17.5); Red Cell Distribution Width 14.6 % (11.8-14.3)
[2023-06-28 07:49] LABS: Hematocrit 38.4 % (41.0-53.0); Mean Corpuscular Hemoglobin 35.8 pg (28.0-32.0); Mean Corpuscular Hgb Conc. 34.7 g/dL (32.0-36.0); Red Blood Cells 3.72 10^6/uL (4.5-5.90); White Blood Cell 17.8 10^3/uL (4.4-10.8)
[2023-06-28 07:53] LABS: Basophils % (manual) 0 (0.0-2.0); Blast Cells 0; Eosinophils % (manual) 0 (0-7); Metamyelocytes % 0; Myelocytes % 0; Promyelocytes % 0
[2023-06-28 07:55] LABS: Chloride 113 mmol/L (98-107); Potassium 4.1 mmol/L (3.5-5.1); Sodium 141 mmol/L (136-145)
[2023-06-28 07:56] LABS: Anion Gap 11 (5-15); Carbon Dioxide 17 mmol/L (20-30)
[2023-06-28 07:57] LABS: Calcium 8.4 mg/dL (8.5-10.1)
[2023-06-28 08:01] LABS: BUN/Creatinine Ratio 14.9 (10.0-20.0); Blood Urea Nitrogen 15 mg/dL (9-23); Glucose 130 mg/dL (74-106)
[2023-06-28 08:35] LABS: Band Neutrophils % (manual) 1; Lymphocytes % (manual) 52 (10.0-50.0); Monocytes % (manual) 4 (0-12); Platelet Estimate Decreased; Reactive Lymphocytes 11
[2023-06-28] MEDS: IOHEXOL 350 MG/ML 100ML IJ ONE (08:45)
[2023-06-28] MEDS ORDERED: LOSARTAN POTASSIUM 25 MG TAB PO SCH (10:00)
[2023-06-28] MEDS ORDERED: HEPARIN SODIUM (PORCINE) 5000 UNITS/ML 1ML VIAL IV ONE (11:00)
[2023-06-28 12:28] LABS: INR 1.22 (0.9-1.15); Partial Thromboplastin Time 29.1 SEC (24.5-34.5); Prothrombin Time 12.7 sec (9.3-11.8)
[2023-06-28 12:44] LABS: Hematocrit 38.9 % (41.0-53.0); Mean Corpuscular Hemoglobin 32.4 pg (28.0-32.0); Mean Corpuscular Hgb Conc. 33.5 g/dL (32.0-36.0); Mean Corpuscular Volume 96.7 fL (80.0-100.0); Red Blood Cells 4.02 10^6/uL (4.5-5.90); Red Cell Distribution Width 14.4 % (11.8-14.3); White Blood Cell 21.7 10^3/uL (4.4-10.8)
[2023-06-28 12:47] LABS: Band Neutrophils % (manual) 0; Basophils % (manual) 0 (0.0-2.0); Blast Cells 0; Metamyelocytes % 0; Myelocytes % 0; Promyelocytes % 0
[2023-06-28] MEDS: HEPARIN DRIP/D5W 100UNITS/ML 250 ML IV SCH (13:21)
[2023-06-28 13:24] LABS: Eosinophils % (manual) 1 (0-7); Lymphocytes % (manual) 57 (10.0-50.0); Monocytes % (manual) 1 (0-12); Platelet Estimate Decreased; Reactive Lymphocytes 5
[2023-06-28] MEDS: FUROSEMIDE 20 MG/2 ML VIAL IV ONE (15:15)
[2023-06-28] MEDS: AMINO ACID INFUSION IN D5W 1,000 ML IV SCH (20:00)
[2023-06-29] VITALS (9 sets, daily range): BP systolic 134–164; BP diastolic 56–80; PULSE 52–100; RESP 17–26; TEMP 97.7–99.5; O2SAT 94–96
[2023-06-29 06:15] LABS: Alkaline Phosphatase 69 U/L (46-116); Anion Gap 10 (5-15); Aspartate Aminotransferase 92 U/L (13-40); Bilirubin, Total 0.8 mg/dL (0.2-1.0); Blood Urea Nitrogen 22 mg/dL (9-23); Calcium 8.6 mg/dL (8.7-10.4); Carbon Dioxide 19 mmol/L (20-30); Chloride 114 mmol/L (98-107); Glucose 145 mg/dL (74-106); Magnesium 2.1 mg/dL (1.6-2.6); Phosphorus 2.8 mg/dL (2.4-5.1); Potassium 3.9 mmol/L (3.5-5.1); Sodium 143 mmol/L (136-145); Total Protein 4.9 g/dL (5.7-8.2)
[2023-06-29 06:18] LABS: Alanine Aminotransferase 51 U/L (7-40)
[2023-06-29] MEDS: AMINO ACID INFUSION IN D5W 1,000 ML IV SCH (19:57)
[2023-06-30] VITALS (7 sets, daily range): BP systolic 131–169; BP diastolic 55–76; PULSE 84–100; RESP 18–24; TEMP 98–98.9; O2SAT 94–100
[2023-06-30 09:03] LABS: Alanine Aminotransferase 41 U/L (7-40); Albumin 2.9 g/dL (3.2-4.8); Alkaline Phosphatase 68 U/L (46-116); Anion Gap 8 (5-15); Aspartate Aminotransferase 71 U/L (13-40); BUN/Creatinine Ratio 23.9 (10.0-20.0); Bilirubin, Total 0.8 mg/dL (0.2-1.0); Blood Urea Nitrogen 21 mg/dL (9-23); Calcium 8.4 mg/dL (8.5-10.1); Carbon Dioxide 20 mmol/L (20-30); Chloride 117 mmol/L (98-107); Glucose 137 mg/dL (74-106); Phosphorus 2.5 mg/dL (2.4-5.1); Potassium 3.9 mmol/L (3.5-5.1); Sodium 145 mmol/L (136-145); Total Protein 4.8 g/dL (5.7-8.2)
[2023-06-30 09:20] LABS: Magnesium 2.1 mg/dL (1.6-2.6)
[2023-06-30 14:33] LABS: Red Cell Distribution Width 14.7 % (11.8-14.3)
[2023-06-30 14:37] LABS: Hematocrit 34.8 % (41.0-53.0); Mean Corpuscular Hemoglobin 37.4 pg (28.0-32.0); Mean Corpuscular Hgb Conc. 34.4 g/dL (32.0-36.0); Mean Corpuscular Volume 108.8 fL (80.0-100.0); White Blood Cell 18.2 10^3/uL (4.4-10.8)
[2023-06-30 15:02] LABS: Band Neutrophils % (manual) 0; Basophils % (manual) 0 (0.0-2.0); Blast Cells 0; Metamyelocytes % 0; Myelocytes % 0; Promyelocytes % 0
[2023-06-30 17:03] LABS: Eosinophils % (manual) 3 (0-7); Lymphocytes % (manual) 58 (10.0-50.0); Monocytes % (manual) 7 (0-12); Platelet Estimate Adequate; Reactive Lymphocytes 2
[2023-07-01] VITALS (9 sets, daily range): BP systolic 114–169; BP diastolic 54–84; PULSE 83–97; RESP 18–91; TEMP 98–99.6; O2SAT 19–96
[2023-07-01 12:38] LABS: Alanine Aminotransferase 40 U/L (7-40); Albumin 2.7 g/dL (3.2-4.8); Alkaline Phosphatase 63 U/L (46-116); Anion Gap 8 (5-15); Aspartate Aminotransferase 48 U/L (13-40); BUN/Creatinine Ratio 20.5 (10.0-20.0); Bilirubin, Total 0.6 mg/dL (0.2-1.0); Blood Urea Nitrogen 17 mg/dL (9-23); Calcium 8.3 mg/dL (8.7-10.4); Carbon Dioxide 19 mmol/L (20-30); Chloride 118 mmol/L (98-107); Glucose 137 mg/dL (74-106); Potassium 3.7 mmol/L (3.5-5.1); Sodium 145 mmol/L (136-145)
[2023-07-01 12:39] LABS: Total Protein 4.6 g/dL (5.7-8.2)
[2023-07-02] VITALS (9 sets, daily range): BP systolic 129–177; BP diastolic 48–74; PULSE 85–96; RESP 18–95; TEMP 97.6–99.1; O2SAT 94–97
[2023-07-02 06:34] LABS: Alanine Aminotransferase 38 U/L (7-40); Albumin 2.8 g/dL (3.2-4.8); Alkaline Phosphatase 65 U/L (46-116); Anion Gap 10 (5-15); Aspartate Aminotransferase 56 U/L (13-40); BUN/Creatinine Ratio 20.5 (10.0-20.0); Bilirubin, Total 0.7 mg/dL (0.2-1.0); Blood Urea Nitrogen 16 mg/dL (9-23); Calcium 8.3 mg/dL (8.5-10.1); Carbon Dioxide 19 mmol/L (20-30); Chloride 117 mmol/L (98-107); Glucose 134 mg/dL (74-106); Phosphorus 2.6 mg/dL (2.4-5.1); Potassium 4.3 mmol/L (3.5-5.1); Sodium 146 mmol/L (136-145); Total Protein 4.6 g/dL (5.7-8.2)
[2023-07-02 07:17] LABS: Magnesium 2.1 mg/dL (1.6-2.6)
[2023-07-02] MEDS ORDERED: diazePAM 5 MG TAB PO ONE (10:15)
[2023-07-03 01:00] VITALS: BP 160/94; PULSE 115; RESP 20; O2SAT 94
[2023-07-03 04:44] VITALS: BP 178/93; PULSE 117; RESP 24; O2SAT 91
[2023-07-03 07:21] LABS: Alanine Aminotransferase 40 U/L (7-40); Albumin 2.9 g/dL (3.2-4.8); Alkaline Phosphatase 65 U/L (46-116); Anion Gap 9 (5-15); Aspartate Aminotransferase 51 U/L (13-40); BUN/Creatinine Ratio 25.2 (10.0-20.0); Bilirubin, Total 0.5 mg/dL (0.2-1.0); Calcium 8.3 mg/dL (8.7-10.4); Carbon Dioxide 22 mmol/L (20-30); Chloride 118 mmol/L (98-107); Glucose 173 mg/dL (74-106); Phosphorus 4.4 mg/dL (2.4-5.1); Potassium 5.2 mmol/L (3.5-5.1); Sodium 149 mmol/L (136-145); Total Protein 4.5 g/dL (5.7-8.2)
[2023-07-03 07:27] LABS: Blood Urea Nitrogen 35 mg/dL (9-23)
[2023-07-03] MEDS ORDERED: ENOXAPARIN SOD 40 MG/0.4 ML SYRINGE SC SCH (10:00)
== END 2023-07-03 09:00 ==
LOC: EDUNIT# 17:21 → ER 17:21 → EDBD 17:21 → TELE 23:09 → TELE-WESTW 06-26 21:55
PROVIDERS: ADMIT Nurse Practitioner Family; ATTEND Internal Medicine
DX: I21.4 Non-ST elevation (NSTEMI) myocardial infarction (principal); G93.41 Metabolic encephalopathy; E87.20 Acidosis, unspecified; N39.0 Urinary tract infection, site not specified; C91.10 Chronic lymphocytic leukemia of B-cell type not having achieved remission; J98.11 Atelectasis; J90 Pleural effusion, not elsewhere classified; I49.9 Cardiac arrhythmia, unspecified; I10 Essential (primary) hypertension; E11.9 Type 2 diabetes mellitus without complications; C44.90 Unspecified malignant neoplasm of skin, unspecified; K80.20 Calculus of gallbladder without cholecystitis without obstruction; R31.29 Other microscopic hematuria; Z66 Do not resuscitate; B95.4 Other streptococcus as the cause of diseases classified elsewhere; B96.89 Other specified bacterial agents as the cause of diseases classified elsewhere; S40.012A Contusion of left shoulder, initial encounter; S49.92XA Unspecified injury of left shoulder and upper arm, initial encounter; W18.39XA Other fall on same level, initial encounter; Z96.651 Presence of right artificial knee joint; W18.30XA Fall on same level, unspecified, initial encounter; M25.412 Effusion, left shoulder; M19.012 Primary osteoarthritis, left shoulder; Y93.89 Activity, other specified; Y92.89 Other specified places as the place of occurrence of the external cause; Y99.8 Other external cause status
CPT/HCPCS: 36415; 70450; 70551; 71045; 71250; 71275; 72125; 73030; 73221; 74176; 76881; 80048; 80053; 80202; 81001; 82962; 83036; 83605; 83615; 83735; 84100; 84484; 85007; 85025; 85027; 85379; 85610; 85730; 87040; 87077; 87086; 87186; 92507; 92610; 93005; 93306; 93970; 97110; 97163; 97530; G0378; J1815; J2543